=== PATIENT | female | born 1990 | race Two or more races ===

== ENCOUNTER 2018-05-27 09:54 | Emergency (ER) | payer SELFPAY ==
[~2018-05-27] VITALS: Ht 167.6 cm; Wt 34.0 kg
[2018-05-27 09:54] VITALS: BP 132/18
[2018-05-27] MEDS ORDERED: IBUPROFEN 600 MG TABLET PO ONE ×2 (10:00→10:16)
== END 2018-05-27 10:14 | disposition home or self-care (01) ==
LOC: ER 09:55
DX: S80.02XA Contusion of left knee, initial encounter (principal); V49.49XA Driver injured in collision with other motor vehicles in traffic accident, initial encounter; Y93.89 Activity, other specified; Y92.413 State road as the place of occurrence of the external cause; Y99.8 Other external cause status
CPT/HCPCS: A4606; Z7610